=== PATIENT | male | born 1950 | race Two or more races ===

== ENCOUNTER 2018-10-20 10:00 | Outpatient (CLI) | payer MEDICARE, BC | END 2018-10-20 23:59 | disposition home or self-care (01) | LOC: WOU 10:00 | PROVIDERS: ATTEND Specialist | DX: L90.5 Scar conditions and fibrosis of skin (principal); S51.002S Unspecified open wound of left elbow, sequela; W40 Explosion of other materials | CPT/HCPCS: 73080; A6402; G0463 ==

== ENCOUNTER 2018-10-25 14:15 | Outpatient (CLI) | payer MEDICARE, BC | END 2018-10-25 23:59 | disposition home or self-care (01) | LOC: WOU 14:15 | PROVIDERS: ATTEND Surgery | DX: L90.5 Scar conditions and fibrosis of skin (principal); S51.002S Unspecified open wound of left elbow, sequela; W40 Explosion of other materials; I10 Essential (primary) hypertension; M19.90 Unspecified osteoarthritis, unspecified site | CPT/HCPCS: G0463 ==

== ENCOUNTER 2018-11-15 13:50 | Outpatient (CLI) | payer MEDICARE, BC | END 2018-11-15 23:59 | disposition home or self-care (01) | LOC: WOU 13:50 | PROVIDERS: ATTEND Surgery | DX: S51.002S Unspecified open wound of left elbow, sequela (principal); L90.5 Scar conditions and fibrosis of skin; W40 Explosion of other materials; Z79.899 Other long term (current) drug therapy | CPT/HCPCS: G0463 ==

== ENCOUNTER 2019-07-18 15:42 | Outpatient (CLI) | payer MEDICARE, BC ==
[2019-07-18] MEDS ORDERED: TETANUS,DIPHTHERIA TOXD PED/PF 0.5 ML VIAL IM ONE (16:30)
== END 2019-07-18 23:59 | disposition home health service (06) ==
LOC: WOU 15:42
PROVIDERS: ATTEND Surgery
DX: S61.452A Open bite of left hand, initial encounter (principal); W54.0XXA Bitten by dog, initial encounter; Y92.89 Other specified places as the place of occurrence of the external cause; I10 Essential (primary) hypertension; N40.0 Benign prostatic hyperplasia without lower urinary tract symptoms; M19.90 Unspecified osteoarthritis, unspecified site; Z79.899 Other long term (current) drug therapy; Z87.891 Personal history of nicotine dependence
CPT/HCPCS: 11043; 90702-TC; 90715

== ENCOUNTER 2019-07-19 10:02 | Outpatient (CLI) | payer MEDICARE, BC | END 2019-07-19 23:59 | disposition home or self-care (01) | LOC: RAD 10:02 | PROVIDERS: ATTEND Surgery | DX: S61.452A Open bite of left hand, initial encounter (principal); M19.042 Primary osteoarthritis, left hand; M77.9 Enthesopathy, unspecified; M79.89 Other specified soft tissue disorders; X58.XXXA Exposure to other specified factors, initial encounter; Y93.89 Activity, other specified; Y92.89 Other specified places as the place of occurrence of the external cause; Y99.8 Other external cause status | CPT/HCPCS: 73130-TC ==

== ENCOUNTER 2019-07-25 08:55 | Outpatient (CLI) | payer MEDICARE, BC | END 2019-07-25 23:59 | disposition home health service (06) | LOC: WOU 08:55 | PROVIDERS: ATTEND Surgery | DX: S61.452D Open bite of left hand, subsequent encounter (principal); W54.0XXD Bitten by dog, subsequent encounter; I10 Essential (primary) hypertension; E78.5 Hyperlipidemia, unspecified; N40.0 Benign prostatic hyperplasia without lower urinary tract symptoms; M19.90 Unspecified osteoarthritis, unspecified site; Z79.899 Other long term (current) drug therapy | CPT/HCPCS: G0463 ==

== ENCOUNTER 2019-07-28 10:00 | Outpatient (CLI) | payer MEDICARE, BC | END 2019-07-28 23:59 | disposition home health service (06) | LOC: WOU 10:00 | PROVIDERS: ATTEND Surgery | DX: S61.452A Open bite of left hand, initial encounter (principal); W54.0XXA Bitten by dog, initial encounter; Y92.89 Other specified places as the place of occurrence of the external cause; I10 Essential (primary) hypertension; E78.5 Hyperlipidemia, unspecified; M19.90 Unspecified osteoarthritis, unspecified site; Z79.899 Other long term (current) drug therapy | CPT/HCPCS: 11042 ==

== ENCOUNTER 2019-08-04 09:30 | Outpatient (CLI) | payer MEDICARE, BC | END 2019-08-04 23:59 | disposition home health service (06) | LOC: WOU 09:30 | PROVIDERS: ATTEND Surgery | DX: S61.452D Open bite of left hand, subsequent encounter (principal); W54.0XXD Bitten by dog, subsequent encounter; I10 Essential (primary) hypertension; E78.5 Hyperlipidemia, unspecified; N40.0 Benign prostatic hyperplasia without lower urinary tract symptoms; M19.90 Unspecified osteoarthritis, unspecified site; Z79.899 Other long term (current) drug therapy; Z87.891 Personal history of nicotine dependence | CPT/HCPCS: G0463 ==

== ENCOUNTER 2019-08-11 09:30 | Outpatient (CLI) | payer MEDICARE, BC | END 2019-08-11 23:59 | disposition home health service (06) | LOC: WOU 09:30 | PROVIDERS: ATTEND Surgery | DX: S61.452D Open bite of left hand, subsequent encounter (principal); W54.0XXD Bitten by dog, subsequent encounter; I10 Essential (primary) hypertension; E78.5 Hyperlipidemia, unspecified; M19.90 Unspecified osteoarthritis, unspecified site; N40.0 Benign prostatic hyperplasia without lower urinary tract symptoms; Z79.899 Other long term (current) drug therapy | CPT/HCPCS: G0463 ==

== ENCOUNTER 2019-08-18 09:30 | Outpatient (CLI) | payer MEDICARE, BC | END 2019-08-18 23:59 | disposition home health service (06) | LOC: WOU 09:30 | PROVIDERS: ATTEND Surgery | DX: S61.452D Open bite of left hand, subsequent encounter (principal); W54.0XXD Bitten by dog, subsequent encounter; I10 Essential (primary) hypertension; E78.5 Hyperlipidemia, unspecified; M19.90 Unspecified osteoarthritis, unspecified site; N40.0 Benign prostatic hyperplasia without lower urinary tract symptoms; Z79.899 Other long term (current) drug therapy | CPT/HCPCS: G0463 ==

== ENCOUNTER 2021-04-30 10:15 | Outpatient (CLI) | payer MEDICARE, BC | END 2021-04-30 23:59 | disposition home health service (06) | LOC: WOU 10:15 | PROVIDERS: ATTEND Podiatrist Foot & Ankle Surgery | DX: M79.605 Pain in left leg (principal); R60.0 Localized edema; I10 Essential (primary) hypertension; Z79.899 Other long term (current) drug therapy | CPT/HCPCS: G0463 ==

== ENCOUNTER 2021-05-08 11:00 | Outpatient (CLI) | payer MEDICARE | END 2021-05-08 23:59 | disposition home or self-care (01) | LOC: MRI 11:00 | PROVIDERS: ATTEND Podiatrist Foot & Ankle Surgery | DX: R60.0 Localized edema (principal); M79.605 Pain in left leg | CPT/HCPCS: 73718-TC ==

== ENCOUNTER 2021-06-19 14:55 | Outpatient (CLI) | payer MEDICARE, BC | END 2021-06-19 23:59 | disposition home or self-care (01) | LOC: WOU 14:55 | PROVIDERS: ATTEND Podiatrist Foot & Ankle Surgery | DX: T79.A22D Traumatic compartment syndrome of left lower extremity, subsequent encounter (principal); X58.XXXD Exposure to other specified factors, subsequent encounter; G57.92 Unspecified mononeuropathy of left lower limb; M62.562 Muscle wasting and atrophy, not elsewhere classified, left lower leg; M79.605 Pain in left leg | CPT/HCPCS: G0463 ==

== ENCOUNTER 2021-07-12 12:20 | Outpatient (CLI) | payer MEDICARE, BC | END 2021-07-12 23:59 | disposition home or self-care (01) | LOC: WOU 12:20 | PROVIDERS: ATTEND Podiatrist Foot & Ankle Surgery | DX: G57.02 Lesion of sciatic nerve, left lower limb (principal); M79.605 Pain in left leg; R60.0 Localized edema | CPT/HCPCS: G0463 ==

== ENCOUNTER 2021-07-23 10:03 | Outpatient (CLI) | payer MEDICARE, BC | END 2021-07-23 23:59 | disposition home or self-care (01) | LOC: MSC 10:03 | PROVIDERS: ATTEND Anesthesiology | DX: M54.16 Radiculopathy, lumbar region (principal); M40.299 Other kyphosis, site unspecified; M62.830 Muscle spasm of back; Z88.2 Allergy status to sulfonamides; Z79.899 Other long term (current) drug therapy; R26.89 Other abnormalities of gait and mobility; Z98.890 Other specified postprocedural states ==

== ENCOUNTER 2021-07-31 14:04 | Outpatient (CLI) | payer MEDICARE, BC | END 2021-07-31 23:59 | disposition home or self-care (01) | LOC: MRI 14:04 | PROVIDERS: ATTEND Anesthesiology | DX: M47.816 Spondylosis without myelopathy or radiculopathy, lumbar region (principal); M51.27 Other intervertebral disc displacement, lumbosacral region; M48.8X7 Other specified spondylopathies, lumbosacral region; M48.07 Spinal stenosis, lumbosacral region; G95.89 Other specified diseases of spinal cord; M43.16 Spondylolisthesis, lumbar region; M51.24 Other intervertebral disc displacement, thoracic region; M51.46 Schmorl's nodes, lumbar region; M51.25 Other intervertebral disc displacement, thoracolumbar region | CPT/HCPCS: 72148-TC ==

== ENCOUNTER → 2021-08-06 | Outpatient (CLI) | payer MEDICARE, BC | END | disposition home or self-care (01) | LOC: MSC 10:15 | PROVIDERS: ATTEND Anesthesiology | DX: M48.061 Spinal stenosis, lumbar region without neurogenic claudication (principal); M47.27 Other spondylosis with radiculopathy, lumbosacral region; M40.299 Other kyphosis, site unspecified; M62.830 Muscle spasm of back; M79.2 Neuralgia and neuritis, unspecified; Z79.899 Other long term (current) drug therapy; Z88.2 Allergy status to sulfonamides; Z98.890 Other specified postprocedural states ==